=== PATIENT | female | born 1965 | race Caucasian/White ===

== ENCOUNTER 2016-12-18 19:11 | Inpatient (IN) | payer OTHER ==
[2016-12-18 19:27] VITALS: BMI 30.3
--- NOTE | 2016-12-18 21:35 | HP ---
CIWA Score - CIWA Score Nausea/Vomitin Muscle Tremors: 5 Anxiety: 4-Mod. Anxious/Guarded Agitation: 4-Moderately Restless Paroxysmal Sweats: 1-Minimal Palms Moist Orientation: 1-Uncertain about Date Tacttile Disturbances: 0-None Auditory Disturbances: 0-None Visual Disturbances: 0-None Headache: 0-None Present CIWA-Ar Total Score: 17 Admission ROS BHS - HPI Chief Complaint: withdrawal sx Allergies/Adverse Reactions: Allergies Allergy/AdvReac Type Severity Reaction Status Date / Time prednisone Allergy Verified 12/18/16 21:36 History of Present Illness: 51 years old female with long history of alcohol nicotine dependence, has asthma swelling of both legs hypertension is admitted to detox Exam Limitations: No Limitations - Ebola screening Have you traveled outside of the country in the last 21 days: No Have you had contact with anyone from an Ebola affected area: No Have you been sick,other than usual withdrawal symptoms: No Do you have a fever: No - Review of Systems Constitutional: Chills, Changes in sleep, Weight Stable EENT: reports: Dental Problems (denture upper and lower at home) Respiratory: reports: SOB at Rest, Productive cough Cardiac: reports: No Symptoms Reported GI: reports: Diarrhea, Nausea, Poor Fluid Intake, Vomiting, Abdominal cramping : reports: No Symptoms Reported Musculoskeletal: reports: No Symptoms Reported Integumentary: reports: No Symptoms Reported Neuro: reports: Tremors Endocrine: reports: No Symptoms Reported Hematology: reports: No Symptoms Reported Psychiatric: reports: Judgement Intact, Mood/Affect Appropiate Other Systems: Reviewed and Negative Patient History - Patient Medical History Hx Anemia: No Hx Asthma: Yes Hx Chronic Obstructive Pulmonary Disease (COPD): Yes Hx Cancer: No Hx Cardiac Disorders: No Hx Congestive Heart Failure: No Hx Hypertension: Yes Hx Hypercholesterolemia: No Hx Pacemaker: No HX Cerebrovascular Accident: No Hx Seizures: No Hx Dementia: No Hx Diabetes: No Hx Gastrointestinal Disorders: No Hx Liver Disease: No Hx Genitourinary Disorders: No Hx Sexually Transmitted Disorders: No Hx Renal Disease (ESRD): No Hx Thyroid Disease: No Hx Human Immunodeficiency Virus (HIV): No Hx Hepatitis C: Yes Hx Depression: No Hx Suicide Attempt: No Hx Bipolar Disorder: No Hx Schizophrenia: No - Patient Surgical History Past Surgical History: No - PPD History Previous Implant?: Yes Documented Results: Negative w/o proof Implanted On Prior [facility] Admission?: No PPD to be Administered?: Yes - Reproductive History Patient is a Female of Child Bearing Age (11 -55 yrs old): Yes Last Menstrual Period: 12/19/11 Patient : No - Smoking Cessation Smoking history: Current every day smoker Have you smoked in the past 12 months: Yes Aproximately how many cigarettes per day: 5 Cigars Per Day: 0 Hx Chewing Tobacco Use: No Initiated information on smoking cessation: Yes 'Breaking Loose' booklet given: 12/18/16 - Substance & Tx. History Hx Alcohol Use: Yes Hx Substance Use: No Substance Use Type: Alcohol, Heroin Hx Substance Use Treatment: Yes - Substances Abused Alcohol Route: Oral Frequency: Daily Amount used: 2 pints volka Age of first use: 46 Date of Last Use: 12/18/16 Family Disease History - Family Disease History Family Disease History: Other: Father (no contact), Mother (alcohol) Admission Physical Exam BHS - Vital Signs Vital Signs: Vital Signs - 24 hr 12/18/16 19:13 Temperature 97.1 F L Pulse Rate 78 Respiratory 20 Rate Blood Pressure 121/74 - Physical General Appearance: Yes: Nourished, Appropriately Dressed, Moderate Distress, Alcohol on Breath, Tremorous, Irritable, Sweating, Anxious HEENTM: Yes: Hearing grossly Normal, Normal ENT Inspection, Normocephalic, Normal Voice Respiratory: Yes: Chest Non-Tender, Labored Respiration, No Respiratory Distress , No Accessory Muscle Use, Rhonchi, Wheezing, Expiration Neck: Yes: Supple, Trachea in good position Breast: Yes: Breasts Symetrical Cardiology: Yes: Regular Rhythm, Regular Rate, S1, S2 Abdominal: Yes: Non Tender, Soft Genitourinary: Yes: Within Normal Limits Back: Yes: Normal Inspection Musculoskeletal: Yes: full range of Motion, Gait Steady, Joint swelling (both ankle) Extremities: Yes: Normal Range of Motion, Non-Tender, Tremors, Swelling (ankles) Neurological: Yes: Alert, Motor Strength 5/5, Normal Mood/Affect, Normal Response Integumentary: Yes: Warm, Moist Lymphatic: Yes: Within Normal Limits - Diagnostic (1) Alcohol dependence with uncomplicated withdrawal Current Visit: Yes Status: Acute (2) Asthma Current Visit: Yes Status: Acute Qualifiers: Asthma severity: moderate persistent Asthma complication type: with status asthmaticus Qualified Code(s): J45.42 - Moderate persistent asthma with status asthmaticus (3) Nicotine dependence Current Visit: Yes Status: Acute Qualifiers: Nicotine product type: cigarettes Substance use status: in withdrawal Qualified Code(s): F17.213 - Nicotine dependence, cigarettes, with withdrawal (4) CHF (congestive heart failure) Current Visit: Yes Status: Acute Qualifiers: Congestive heart failure type: combined Congestive heart failure chronicity: chronic Qualified Code(s): I50.42 - Chronic combined systolic (congestive) and diastolic (congestive) heart failure (5) Hypertension Current Visit: Yes Status: Acute Qualifiers: Hypertension type: essential hypertension Qualified Code(s): I10 - Essential (primary) hypertension (6) Hepatitis C antibody test positive Current Visit: Yes Status: Chronic (7) Methadone maintenance therapy patient Current Visit: Yes Status: Chronic (8) Swelling of lower extremity Current Visit: Yes Status: Chronic Cleared for Admission BHS - Detox or Rehab [facility] Level of Care: Medically Managed Detox Regimen/Protocol: Librium S Breath Alcohol Content Breath Alcohol Content: 0.031 Urine Drug Screen - Results Drug Screen Negative: No Urine Drug Screen Results: MTD-Methadone, TCA-Tricyclic Antidepress
[2016-12-18] MEDS ORDERED: guaiFENesin/D-METHORPHAN HB 10 ML UNIT-DOSE CUPS PO PRN (21:38)
[2016-12-18] MEDS ORDERED: P-EPHED 60MG/TRIPROLIDI 2.5MG TABLET PO PRN (21:38)
[2016-12-18] MEDS ORDERED: MAGNESIUM CITRATE 300 ML BOTTLE PO PRN (21:38)
[2016-12-18] MEDS ORDERED: MENTHOL/PHENOL 1 EACH UD MM PRN (21:38)
[2016-12-18] MEDS ORDERED: MAG HYDROX/AL HYDROX/SIMETH 30 ML UNIT-DOSE CUP PO PRN (21:38)
[2016-12-18] MEDS ORDERED: IBUPROFEN 400 MG TABLET (FP) PO PRN (21:38)
[2016-12-18] MEDS ORDERED: ACETAMINOPHEN 325 MG TABLET (FP) PO PRN (21:38)
[2016-12-18] MEDS ORDERED: chlordiazePOXIDE HCL 25 MG CAPSULE PO ONE (21:38)
[2016-12-18] MEDS ORDERED: MAGNESIUM HYDROX 2400MG/30ML ORAL SUSPENSION 30 ML CUP PO PRN (21:38)
[2016-12-18] MEDS ORDERED: LOPERAMIDE HCL 2 MG CAPSULE PO PRN (21:38)
[2016-12-18] MEDS ORDERED: NICOTINE POLACRILEX 2 MG GUM BC PRN (21:38)
[2016-12-18] MEDS ORDERED: ONDANSETRON *ODT* 4 MG TABLET SL PRN (21:41)
[2016-12-18] MEDS ORDERED: ALBUTEROL SO4 6.7 GM HFA INHALER IH PRN (21:43)
[2016-12-18] MEDS ORDERED: ALBUTEROL SO4 2.5/IPRATROPIUM 0.5 INH SOL 3 ML VIAL.NEB. NEB PRN (21:43)
[2016-12-18] MEDS: THIAMINE HCL 100 MG TABLET (FP) PO SCH (23:45)
[2016-12-19 01:45] LABS: URINE APPEARANCE CLEAR; URINE BILIRUBIN NEGATIVE (NEGATIVE); URINE BLOOD NEGATIVE (NEGATIVE); URINE COLOR AMBER; URINE GLUCOSE (UA) NEGATIVE (NEGATIVE); URINE KETONE NEGATIVE (NEGATIVE); URINE LEUK ESTERASE NEGATIVE (NEGATIVE); URINE NITRITE NEGATIVE (NEGATIVE); URINE PROTEIN NEGATIVE (NEGATIVE); URINE UROBILINOGEN 4.0 E.U/dl E.U./dl (0.2-1.0)
[2016-12-19] MEDS: chlordiazePOXIDE HCL 25 MG CAPSULE PO SCH ×5 (05:55→22:23)
[2016-12-19 09:53] LABS: MCH 35.8 pg (25.7-33.7); MCHC 34.2 g/dl (32.0-36.0); MEAN CELL VOLUME 104.7 fl (80-96); MEAN PLT VOLUME 9.4 fl (7.5-11.1); PLATELET COUNT 58 K/MM3 (134-434); RDW 15.2 % (11.6-15.6)
[2016-12-19] MEDS ORDERED: ALBUTEROL SO4 2.5/IPRATROPIUM 0.5 INH SOL 3 ML VIAL.NEB. NEB ONE (09:55)
[2016-12-19] MEDS ORDERED: METHADONE HCL 10 MG TABLET PO ONE (09:56)
--- NOTE | 2016-12-19 10:01 | PN ---
S CIWA - CIWA Score Nausea/Vomitin-No Nausea/No Vomiting Muscle Tremors: 4-Moderate,w/Arms Extend Anxiety: 3 Agitation: 4-Moderately Restless Paroxysmal Sweats: 3 Orientation: 0-Oriented Tacttile Disturbances: 0-None Auditory Disturbances: 0-None Visual Disturbances: 0-None Headache: 1-Very Mild CIWA-Ar Total Score: 15 BHS Progress Note (SOAP) Subjective: congestion/asthma sweats shakes interrupted sleep agitation body aches Objective: 12/19/16 09:59 Vital Signs Temperature 99.1 F 12/19/16 09:41 Pulse Rate 76 12/19/16 09:41 Respiratory Rate 18 12/19/16 09:41 Blood Pressure 139/81 12/19/16 09:41 O2 Sat by Pulse Oximetry (%) Laboratory Tests 12/19/16 01:13 Urine Color Kimberly Urine Appearance Clear Urine pH 7.0 Ur Specific [place] 1.015 Urine Protein Negative Urine Glucose (UA) Negative Urine Ketones Negative Urine Blood Negative Urine Nitrite Negative Urine Bilirubin Negative Urine Urobilinogen 4.0 e.u/dl H Ur Leukocyte Esterase Negative labs pending awake/alert ambulating no acute distress Assessment: 12/19/16 09:59 withdrawal sx wheeze/rhonchi noted Plan: continue detox increase fluids duoneb now then prn labs pending
[2016-12-19] MEDS ORDERED: METHADONE 40 MG, METHADONE 30 MG PO ONE (10:10)
[2016-12-19 10:16] LABS: ALBUMIN 3.2 g/dl (3.4-5.0); ALK PHOS 153 U/L (45-117); ANION GAP 8 (8-16); BILIRUBIN,TOTAL 2.1 mg/dL (0.2-1.0); CALCIUM 9.3 mg/dL (8.5-10.1); CO2 31 mmol/L (21-32); CREATININE 0.7 mg/dL (0.55-1.02); GLUCOSE,RANDOM 92 mg/dL (74-106); SGOT/AST 89 U/L (15-37); SGPT/ALT 37 U/L (12-78); TOT PROT 7.7 g/dl (6.4-8.2)
[2016-12-19] MEDS: FUROSEMIDE 40 MG TABLET (FP) PO SCH (10:28)
[2016-12-19] MEDS: PRENATAL VITAMINS W/ FOLIC ACID TABLET (FP) PO SCH (10:28)
[2016-12-19] MEDS: NICOTINE 14 MG/24 HOURS TOPICAL PATCH TD SCH (10:29)
[2016-12-19] MEDS: amLODIPine BESYLATE 5 MG TABLET (FP) PO SCH (10:29)
[2016-12-19] MEDS ORDERED: METHADONE HCL 10 MG TABLET ONE (10:32)
[2016-12-19] MEDS ORDERED: METHADONE HCL 40 MG DISPERSABLE TABLET ONE (10:32)
[2016-12-19] MEDS: chlordiazePOXIDE HCL 25 MG CAPSULE PO PRN (14:39)
--- NOTE | 2016-12-19 17:44 | CONSULT ---
[facility] Psychiatric Consult - Data Date of interview: 12/19/16 Admission source: [facility] Identifying data: First admission to [facility] for this 51 y/o female seeking detox treatment on for alcohol and heroin dependence.Patient is single,a mother of three,domiciled,unemployed and supported on Public Assistance. Substance Abuse History: - Smoking Cessation. Smoking history: Current every day smoker. Have you smoked in the past 12 months: Yes. Aproximately how many cigarettes per day: 5. Cigars Per Day: 0. Hx Chewing Tobacco Use: No. Initiated information on smoking cessation: Yes. 'Breaking Loose' booklet given : 12/18/16. - Substance & Tx. History. Hx Alcohol Use: Yes. Hx Substance Use : No. Substance Use Type: Alcohol, Heroin. Hx Substance Use Treatment: Yes. - Substances Abused. Alcohol. Route: Oral. Frequency: Daily. Amount used : 2 pints volka. Age of first use: 46. Date of Last Use: 12/18/16. Confirmed by patient. Medical History: Hypertension,CHF,hepatitis C and bronchial asthma. Psychiatric History: Patient denies. Physical/Sexual Abuse/Trauma History: Patient denies. Mental Status Exam - Mental Status Exam Alert and Oriented to: Time, Place, Person Cognitive Function: Good Patient Appearance: Well Groomed Mood: Hopeful, Euthymic Affect: Appropriate, Normal Range Patient Behavior: Fatigued, Appropriate, Cooperative Speech Pattern: Clear Voice Loudness: Normal Thought Process: Goal Oriented Thought Disorder: Not Present Hallucinations: Denies Suicidal Ideation: Denies Homicidal Ideation: Denies Insight/Judgement: Poor Sleep: Well Appetite: Good Muscle strength/Tone: Normal Gait/Station: Normal Psychiatric Findings - Problem List ([place] 1, 2,3) (1) Alcohol dependence with uncomplicated withdrawal Current Visit: Yes Status: Acute (2) Nicotine dependence Current Visit: Yes Status: Acute Qualifiers: Nicotine product type: cigarettes Substance use status: in withdrawal Qualified Code(s): F17.213 - Nicotine dependence, cigarettes, with withdrawal (3) Methadone maintenance therapy patient Current Visit: Yes Status: Chronic (4) Asthma Current Visit: Yes Status: Chronic Qualifiers: Asthma severity: moderate persistent Asthma complication type: with status asthmaticus Qualified Code(s): J45.42 - Moderate persistent asthma with status asthmaticus (5) CHF (congestive heart failure) Current Visit: Yes Status: Chronic Qualifiers: Congestive heart failure type: combined Congestive heart failure chronicity: chronic Qualified Code(s): I50.42 - Chronic combined systolic (congestive) and diastolic (congestive) heart failure (6) Hypertension Current Visit: Yes Status: Chronic Qualifiers: Hypertension type: essential hypertension Qualified Code(s): I10 - Essential (primary) hypertension (7) Hepatitis C antibody test positive Current Visit: Yes Status: Chronic (8) Swelling of lower extremity Current Visit: Yes Status: Chronic - Initial Treatment Plan Initial Treatment Plan: Psychoeducation.Detoxification.Observation.
[2016-12-19] MEDS: THIAMINE HCL 100 MG TABLET (FP) PO SCH (22:23)
[2016-12-19] MEDS: diphenhydrAMINE HCL 50 MG CAPSULE PO PRN (22:24)
[2016-12-20] MEDS ORDERED: METHADONE HCL 10 MG TABLET ONE (04:09)
[2016-12-20] MEDS ORDERED: METHADONE HCL 40 MG DISPERSABLE TABLET ONE (04:09)
[2016-12-20] MEDS: METHADONE 40 MG, METHADONE 30 MG PO SCH (05:11)
[2016-12-20] MEDS: chlordiazePOXIDE HCL 25 MG CAPSULE PO SCH ×3 (05:11→17:40)
[2016-12-20] MEDS ORDERED: METHADONE HCL 40 MG DISPERSABLE TABLET PO SCH (06:00)
[2016-12-20] MEDS: NICOTINE 14 MG/24 HOURS TOPICAL PATCH TD SCH (10:01)
[2016-12-20] MEDS: PRENATAL VITAMINS W/ FOLIC ACID TABLET (FP) PO SCH (10:01)
[2016-12-20] MEDS: FUROSEMIDE 40 MG TABLET (FP) PO SCH (10:01)
[2016-12-20] MEDS: amLODIPine BESYLATE 5 MG TABLET (FP) PO SCH (10:01)
--- NOTE | 2016-12-20 11:54 | PN ---
S CIWA - CIWA Score Nausea/Vomitin Muscle Tremors: 2 Anxiety: 2 Agitation: 2 Paroxysmal Sweats: 2 Orientation: 0-Oriented Tacttile Disturbances: 1-Very Mild Itch/Numbness Auditory Disturbances: 0-None Visual Disturbances: 0-None Headache: 0-None Present CIWA-Ar Total Score: 11 S Progress Note (SOAP) Subjective: interrupted sleep, sweats ,shakes Objective: 12/20/16 11:52 Vital Signs Temperature 98.8 F 12/20/16 10:10 Pulse Rate 87 12/20/16 10:10 Respiratory Rate 16 12/20/16 10:10 Blood Pressure 107/80 12/20/16 10:10 O2 Sat by Pulse Oximetry (%) Laboratory Tests 12/19/16 12/19/16 12/19/16 01:13 07:00 07:00 WBC 4.0 RBC 3.49 L Hgb 12.5 Hct 36.6 MCV 104.7 H MCHC 34.2 RDW 15.2 Plt Count 58 L MPV 9.4 Sodium 138 Potassium 3.7 Chloride 99 Carbon Dioxide 31 Anion Gap 8 BUN 11 Creatinine 0.7 Creat Clearance w eGFR > 60 Random Glucose 92 Calcium 9.3 Total Bilirubin 2.1 H AST 89 H ALT 37 Alkaline Phosphatase 153 H Total Protein 7.7 Albumin 3.2 L Urine Color Kimberly Urine Appearance Clear Urine pH 7.0 Ur Specific [place] 1.015 Urine Protein Negative Urine Glucose (UA) Negative Urine Ketones Negative Urine Blood Negative Urine Nitrite Negative Urine Bilirubin Negative Urine Urobilinogen 4.0 e.u/dl H Ur Leukocyte Esterase Negative RPR Titer 12/19/16 07:00 WBC RBC Hgb Hct MCV MCHC RDW Plt Count MPV Sodium Potassium Chloride Carbon Dioxide Anion Gap BUN Creatinine Creat Clearance w eGFR Random Glucose Calcium Total Bilirubin AST ALT Alkaline Phosphatase Total Protein Albumin Urine Color Urine Appearance Urine pH Ur Specific [place] Urine Protein Urine Glucose (UA) Urine Ketones Urine Blood Urine Nitrite Urine Bilirubin Urine Urobilinogen Ur Leukocyte Esterase RPR Titer Nonreactive pt aox3 in nad ambulating Assessment: 12/20/16 11:52 withdrawl sx's Plan: cont. detox increase fluids
--- NOTE | 2016-12-20 12:42 | EKG ---
Test Reason : Blood Pressure : / mmHG Vent. Rate : 084 BPM Atrial Rate : 084 BPM P-R Int : 128 ms QRS Dur : 098 ms QT Int : 414 ms P-R-T Axes : 040 049 -05 degrees QTc Int : 489 ms NORMAL SINUS RHYTHM PROLONGED QT ABNORMAL ECG NO PREVIOUS ECGS AVAILABLE Confirmed by TATI PIERCE, ANALIA ([id number]) on 12/20/2016 12:41:55 PM Referred By: Austin Briones Confirmed By:ANALIA DUFFY MD
[2016-12-20] MEDS: chlordiazePOXIDE HCL 25 MG CAPSULE PO PRN (15:34)
[2016-12-20] MEDS: chlordiazePOXIDE 5 MG CAPSULE PO SCH (22:08)
[2016-12-20] MEDS: THIAMINE HCL 100 MG TABLET (FP) PO SCH (22:08)
[2016-12-20] MEDS: diphenhydrAMINE HCL 50 MG CAPSULE PO PRN (22:09)
[2016-12-21] MEDS ORDERED: METHADONE HCL 10 MG TABLET ONE (05:08)
[2016-12-21] MEDS ORDERED: METHADONE HCL 40 MG DISPERSABLE TABLET ONE (05:08)
[2016-12-21] MEDS: METHADONE 40 MG, METHADONE 30 MG PO SCH (06:04)
[2016-12-21] MEDS: chlordiazePOXIDE 5 MG CAPSULE PO SCH ×3 (06:04→17:16)
[2016-12-21] MEDS: FUROSEMIDE 40 MG TABLET (FP) PO SCH (10:23)
[2016-12-21] MEDS: PRENATAL VITAMINS W/ FOLIC ACID TABLET (FP) PO SCH (10:23)
[2016-12-21] MEDS: amLODIPine BESYLATE 5 MG TABLET (FP) PO SCH (10:24)
[2016-12-21] MEDS: NICOTINE 14 MG/24 HOURS TOPICAL PATCH TD SCH (10:24)
--- NOTE | 2016-12-21 12:32 | PN ---
S Progress Note (SOAP) Subjective: Sweating, Tremors, Body Aches. Objective: Pt. A & O X 2 (Disoriented about Day / Date). Pt. denies any unusual bruising or bleeding. 12/21/16 12:29 Vital Signs Temperature 98.6 F 12/21/16 09:39 Pulse Rate 87 12/21/16 09:39 Respiratory Rate 18 12/21/16 09:39 Blood Pressure 117/69 12/21/16 09:39 O2 Sat by Pulse Oximetry (%) Laboratory Last Values WBC 4.0 K/mm3 (4.0-10.0) 12/19/16 07:00 RBC 3.49 M/mm3 (3.60-5.2) L 12/19/16 07:00 Hgb 12.5 GM/dL (10.7-15.3) 12/19/16 07:00 Hct 36.6 % (32.4-45.2) 12/19/16 07:00 MCV 104.7 fl (80-96) H 12/19/16 07:00 MCHC 34.2 g/dl (32.0-36.0) 12/19/16 07:00 RDW 15.2 % (11.6-15.6) 12/19/16 07:00 Plt Count 58 K/MM3 (134-434) L 12/19/16 07:00 MPV 9.4 fl (7.5-11.1) 12/19/16 07:00 Sodium 138 mmol/L (136-145) 12/19/16 07:00 Potassium 3.7 mmol/L (3.5-5.1) 12/19/16 07:00 Chloride 99 mmol/L (98-107) 12/19/16 07:00 Carbon Dioxide 31 mmol/L (21-32) 12/19/16 07:00 Anion Gap 8 (8-16) 12/19/16 07:00 BUN 11 mg/dL (7-18) 12/19/16 07:00 Creatinine 0.7 mg/dL (0.55-1.02) 12/19/16 07:00 Creat Clearance w eGFR > 60 (>60) 12/19/16 07:00 Random Glucose 92 mg/dL (74-106) 12/19/16 07:00 Calcium 9.3 mg/dL (8.5-10.1) 12/19/16 07:00 Total Bilirubin 2.1 mg/dL (0.2-1.0) H 12/19/16 07:00 AST 89 U/L (15-37) H 12/19/16 07:00 ALT 37 U/L (12-78) 12/19/16 07:00 Alkaline Phosphatase 153 U/L (45-117) H 12/19/16 07:00 Total Protein 7.7 g/dl (6.4-8.2) 12/19/16 07:00 Albumin 3.2 g/dl (3.4-5.0) L 12/19/16 07:00 Urine Color Kimberly 12/19/16 01:13 Urine Appearance Clear 12/19/16 01:13 Urine pH 7.0 (5.0-8.0) 12/19/16 01:13 Ur Specific [place] 1.015 (1.001-1.035) 12/19/16 01:13 Urine Protein Negative (NEGATIVE) 12/19/16 01:13 Urine Glucose (UA) Negative (NEGATIVE) 12/19/16 01:13 Urine Ketones Negative (NEGATIVE) 12/19/16 01:13 Urine Blood Negative (NEGATIVE) 12/19/16 01:13 Urine Nitrite Negative (NEGATIVE) 12/19/16 01:13 Urine Bilirubin Negative (NEGATIVE) 12/19/16 01:13 Urine Urobilinogen 4.0 e.u/dl E.U./dl (0.2-1.0) H 12/19/16 01:13 Ur Leukocyte Esterase Negative (NEGATIVE) 12/19/16 01:13 RPR Titer Nonreactive (NONREACTIVE) 12/19/16 07:00 LABS NOTED. 12/21/16 12:30 12/21/16 13:41 Assessment: 12/21/16 12:31 WITHDRAWAL SYMPTOMS. Plan: CONTINUE DETOX. ADVISED PT. TO FOLLOW-UP WITH VET ASSISTANT AFTER DISCHARGE FROM DETOX FOR GENERAL MEDICAL ASSESSMENT AND FOR LOW PLATELET LEVEL.
[2016-12-21] MEDS: THIAMINE HCL 100 MG TABLET (FP) PO SCH (22:37)
[2016-12-21] MEDS: chlordiazePOXIDE HCL 10 MG CAPSULE PO SCH (22:37)
[2016-12-21] MEDS: diphenhydrAMINE HCL 50 MG CAPSULE PO PRN (22:38)
[2016-12-22] MEDS ORDERED: METHADONE HCL 10 MG TABLET ONE (04:49)
[2016-12-22] MEDS ORDERED: METHADONE HCL 40 MG DISPERSABLE TABLET ONE (04:50)
[2016-12-22] MEDS: METHADONE 40 MG, METHADONE 30 MG PO SCH (06:02)
[2016-12-22] MEDS: chlordiazePOXIDE HCL 10 MG CAPSULE PO SCH (06:02)
[2016-12-22 06:39] VITALS: BP 111/72; PULSE 88; TEMP 98.1
--- NOTE | 2016-12-22 08:58 | DS ---
[facility] Detox Discharge Summary Admission Date: 12/18/16 Discharge Date: 12/22/16 - History Present History: Alcohol Dependence, Opioid Dependence Pertinent Past History: see below - Physical Exam Results Vital Signs: Vital Signs Temperature 98.1 F 12/22/16 06:00 Pulse Rate 88 12/22/16 06:00 Respiratory Rate 18 12/22/16 06:00 Blood Pressure 111/72 12/22/16 06:00 O2 Sat by Pulse Oximetry (%) Pertinent Admission Physical Exam Findings: admitted in acute withdrawal medically stable on dc detox completed dc today - Treatment Hospital Course: Detox Protocol Followed, Detoxed Safely, Responded well, Discharged Condition Good, Rehab Referral Accepted - Medication Discharge Medications: Ambulatory Orders Amlodipine Besylate [Norvasc -] 5 mg PO DAILY 12/18/16 Furosemide [Lasix -] 40 mg PO DAILY 12/18/16 - Diagnosis (1) Alcohol dependence with uncomplicated withdrawal Current Visit: Yes Status: Acute (2) Nicotine dependence Current Visit: Yes Status: Acute Qualifiers: Nicotine product type: cigarettes Substance use status: in withdrawal Qualified Code(s): F17.213 - Nicotine dependence, cigarettes, with withdrawal (3) Asthma Current Visit: Yes Status: Chronic Qualifiers: Asthma severity: moderate persistent Asthma complication type: with status asthmaticus Qualified Code(s): J45.42 - Moderate persistent asthma with status asthmaticus (4) CHF (congestive heart failure) Current Visit: Yes Status: Chronic Qualifiers: Congestive heart failure type: combined Congestive heart failure chronicity: chronic Qualified Code(s): I50.42 - Chronic combined systolic (congestive) and diastolic (congestive) heart failure (5) Hepatitis C antibody test positive Current Visit: Yes Status: Chronic (6) Hypertension Current Visit: Yes Status: Chronic Qualifiers: Hypertension type: essential hypertension Qualified Code(s): I10 - Essential (primary) hypertension (7) Methadone maintenance therapy patient Current Visit: Yes Status: Chronic - AMA Did Patient Leave Against Medical Advice: No
[2016-12-22] MEDS: PRENATAL VITAMINS W/ FOLIC ACID TABLET (FP) PO SCH (09:25)
[2016-12-22] MEDS: FUROSEMIDE 40 MG TABLET (FP) PO SCH (09:25)
[2016-12-22] MEDS: amLODIPine BESYLATE 5 MG TABLET (FP) PO SCH (09:26)
== END 2016-12-22 09:56 | disposition home or self-care (01) | DRG 773 ==
LOC: YASAS 19:11 → Y6N 22:27
PROVIDERS: ADMIT Internal Medicine Addiction Medicine; ATTEND Internal Medicine Addiction Medicine
PROC: HZ2ZZZZ Detoxification Services for Substance Abuse Treatment (ICD-10-PCS; principal; 2016-12-22)
DX: F11.20 Opioid dependence, uncomplicated (principal); F10.230 Alcohol dependence with withdrawal, uncomplicated; I50.42 Chronic combined systolic (congestive) and diastolic (congestive) heart failure; I10 Essential (primary) hypertension; J45.42 Moderate persistent asthma with status asthmaticus; B18.2 Chronic viral hepatitis C; R60.0 Localized edema
CPT/HCPCS: 36415; 71020-TC; 80053; 81003; 85027; 86593; 93005; 93010; 94640

== ENCOUNTER 2017-02-07 16:22 | Inpatient (IN) | payer OTHER ==
[2017-02-07 18:07] VITALS: BMI 31.4
--- NOTE | 2017-02-07 20:22 | HP ---
CIWA Score - CIWA Score Nausea/Vomitin-Mild Nausea/No Vomiting Muscle Tremors: 4-Moderate,w/Arms Extend Anxiety: 4-Mod. Anxious/Guarded Agitation: 4-Moderately Restless Paroxysmal Sweats: 3 Orientation: 0-Oriented Tacttile Disturbances: 0-None Auditory Disturbances: 0-None Visual Disturbances: 0-None Headache: 0-None Present CIWA-Ar Total Score: 16 Admission ROS S - HPI Chief Complaint: WITHDRAWAL SYMPTOMS Allergies/Adverse Reactions: Allergies Allergy/AdvReac Type Severity Reaction Status Date / Time prednisone Allergy Intermediate Swelling Verified 02/07/17 18:27 History of Present Illness: 52 Y.O. WOMAN WITH AN EXTENSIVE HISTORY OF ALCOHOL DEPENDENCE IS SEEKING DETOX. SHE WAS HERE FOR DETOX ON 12/2016. SHE STATES SHE DOES NOT HAVE A SIGNIFICANT PERIOD OF SOBRIETY. SHE IS CURRENTLY ENROLLED IN A MMTP. THE PATIENT HAS CELLULITIS ON HER B/L LE AND IS TAKING ANTIBIOTICS. Exam Limitations: No Limitations - Ebola screening Have you traveled outside of the country in the last 21 days: No Have you had contact with anyone from an Ebola affected area: No Have you been sick,other than usual withdrawal symptoms: No Do you have a fever: No - Review of Systems Constitutional: Night Sweats EENT: reports: No Symptoms Reported Respiratory: reports: Productive cough Cardiac: reports: No Symptoms Reported GI: reports: Nausea, Abdominal cramping : reports: No Symptoms Reported Musculoskeletal: reports: No Symptoms Reported Integumentary: reports: Erythema Neuro: reports: Tremors Endocrine: reports: No Symptoms Reported Hematology: reports: No Symptoms Reported Psychiatric: reports: Orientated x3 Other Systems: Reviewed and Negative Patient History - Patient Medical History Hx Anemia: No Hx Asthma: Yes (Pt is on Albuterol IH) Hx Chronic Obstructive Pulmonary Disease (COPD): No Hx Cancer: No Hx Cardiac Disorders: Yes (CHF) Hx Congestive Heart Failure: No Hx Hypertension: Yes (BP: 123/74) Hx Hypercholesterolemia: No Hx Pacemaker: No HX Cerebrovascular Accident: No Hx Seizures: No Hx Dementia: No Hx Diabetes: No Hx Gastrointestinal Disorders: No Hx Liver Disease: No Hx Genitourinary Disorders: No Hx Sexually Transmitted Disorders: No Hx Renal Disease (ESRD): No Hx Thyroid Disease: No Hx Human Immunodeficiency Virus (HIV): No Hx Hepatitis C: Yes Hx Depression: No Hx Suicide Attempt: No Hx Bipolar Disorder: No Hx Schizophrenia: No - Patient Surgical History Past Surgical History: No Hx Neurologic Surgery: No Hx Cataract Extraction: No Hx Cardiac Surgery: No Hx Lung Surgery: No Hx Breast Surgery: No Hx Breast Biopsy: No Hx Abdominal Surgery: No Hx Appendectomy: No Hx Cholecystectomy: No Hx Genitourinary Surgery: No Hx Section: No Hx Orthopedic Surgery: No Anesthesia Reaction: No - PPD History Previous Implant?: Yes Documented Results: Negative w/proof Implanted On Prior [facility] Admission?: Yes Date: 12/21/16 Results: 0 PPD to be Administered?: No - Reproductive History Patient is a Female of Child Bearing Age (11 -55 yrs old): Yes Last Menstrual Period: 12/19/11 Patient : No - Smoking Cessation Smoking history: Current every day smoker Have you smoked in the past 12 months: Yes Aproximately how many cigarettes per day: 5 Cigars Per Day: 0 Hx Chewing Tobacco Use: No Initiated information on smoking cessation: Yes 'Breaking Loose' booklet given: 02/07/17 - Substance & Tx. History Hx Alcohol Use: Yes Hx Substance Use: Yes Substance Use Type: Alcohol, Opiates Hx Substance Use Treatment: Yes (DETOX ) - Substances Abused Alcohol Route: Oral Frequency: Daily Amount used: Vodka 1 pint, Beer 3 cans Age of first use: 51 Date of Last Use: 02/06/17 Family Disease History - Family Disease History Family Disease History: Other: Father (no contact), Mother (alcohol) Admission Physical Exam BHS - Vital Signs Vital Signs: Vital Signs - 24 hr 02/07/17 17:57 Temperature 99.0 F Pulse Rate 85 Respiratory 18 Rate Blood Pressure 123/74 - Physical General Appearance: Yes: Disheveled, Tremorous HEENTM: Yes: Normocephalic, Normal Voice, JAMISON Respiratory: Yes: Wheezing, Expiration, Inspiration Neck: Yes: No masses,lesions,Nodules Breast: Yes: Breast Exam Deferred Cardiology: Yes: Regular Rhythm, Regular Rate, S1, S2 Abdominal: Yes: Non Tender Genitourinary: Yes: Within Normal Limits Back: Yes: Normal Inspection Musculoskeletal: Yes: Within Normal Limits Extremities: Yes: Tremors, Pedal Edema Neurological: Yes: Alert, Normal Mood/Affect, Normal Response Integumentary: Yes: Warm, Erythema, Other (Erythema, edema, and warmth to bilateral lower extremities.) Lymphatic: Yes: Within Normal Limits - Diagnostic (1) Alcohol dependence with uncomplicated withdrawal Current Visit: Yes Status: Chronic (2) Nicotine dependence Current Visit: Yes Status: Chronic Qualifiers: Nicotine product type: cigarettes Substance use status: in withdrawal Qualified Code(s): F17.213 - Nicotine dependence, cigarettes, with withdrawal (3) Asthma Current Visit: Yes Status: Chronic Qualifiers: Asthma severity: moderate persistent Asthma complication type: with status asthmaticus Qualified Code(s): J45.42 - Moderate persistent asthma with status asthmaticus (4) Hypertension Current Visit: Yes Status: Chronic Qualifiers: Hypertension type: essential hypertension Qualified Code(s): I10 - Essential (primary) hypertension (5) Opioid dependence on agonist therapy Current Visit: Yes Status: Chronic (6) Cellulitis and abscess of leg Current Visit: Yes Status: Acute Cleared for Admission S - Detox or Rehab [facility] Level of Care: Medically Managed Detox Regimen/Protocol: Librium [facility] Breath Alcohol Content Breath Alcohol Content: 0 Urine Pregancy Test - Result Urine Test Results: Negative- NO Line Present Urine Drug Screen - Results Drug Screen Negative: No Urine Drug Screen Results: BZO-Benzodiazepines, MTD-Methadone
[2017-02-07] MEDS ORDERED: LOPERAMIDE HCL 2 MG CAPSULE PO PRN (20:47)
[2017-02-07] MEDS ORDERED: MAGNESIUM CITRATE 300 ML BOTTLE PO PRN (20:47)
[2017-02-07] MEDS ORDERED: MAGNESIUM HYDROX 2400MG/30ML ORAL SUSPENSION 30 ML CUP PO PRN (20:47)
[2017-02-07] MEDS ORDERED: IBUPROFEN 400 MG TABLET (FP) PO PRN (20:47)
[2017-02-07] MEDS ORDERED: MAG HYDROX/AL HYDROX/SIMETH 30 ML UNIT-DOSE CUP PO PRN (20:47)
[2017-02-07] MEDS ORDERED: ACETAMINOPHEN 325 MG TABLET (FP) PO PRN (20:47)
[2017-02-07] MEDS ORDERED: chlordiazePOXIDE HCL 25 MG CAPSULE PO PRN (20:47)
[2017-02-07] MEDS ORDERED: chlordiazePOXIDE HCL 25 MG CAPSULE PO ONE (20:47)
[2017-02-07] MEDS ORDERED: P-EPHED 60MG/TRIPROLIDI 2.5MG TABLET PO PRN (20:47)
[2017-02-07] MEDS ORDERED: MENTHOL/PHENOL 1 EACH UD MM PRN (20:47)
[2017-02-07] MEDS ORDERED: hydrOXYzine PAMOATE 50 MG CAPSULE (FP) PO PRN (20:47)
[2017-02-07] MEDS ORDERED: guaiFENesin/D-METHORPHAN HB 10 ML UNIT-DOSE CUPS PO PRN (20:47)
[2017-02-07] MEDS: SULFAMETHOXAZOLE/TRIMETHOPRIM 800MG/160MG D.S. TABLET PO SCH (21:18)
[2017-02-07] MEDS: THIAMINE HCL 100 MG TABLET (FP) PO SCH (21:18)
[2017-02-07] MEDS: chlordiazePOXIDE HCL 25 MG CAPSULE PO SCH (23:00)
[2017-02-07 23:08] LABS: URINE APPEARANCE CLEAR; URINE BILIRUBIN NEGATIVE (NEGATIVE); URINE BLOOD NEGATIVE (NEGATIVE); URINE COLOR YELLOW; URINE GLUCOSE (UA) NEGATIVE (NEGATIVE); URINE KETONE NEGATIVE (NEGATIVE); URINE LEUK ESTERASE NEGATIVE (NEGATIVE); URINE NITRITE NEGATIVE (NEGATIVE); URINE PROTEIN NEGATIVE (NEGATIVE); URINE UROBILINOGEN 4.0 E.U/dl E.U./dl (0.2-1.0)
[2017-02-08] MEDS: chlordiazePOXIDE HCL 25 MG CAPSULE PO SCH ×4 (05:35→22:30)
[2017-02-08] MEDS ORDERED: ALBUTEROL SO4 0.083% IH SOL 2.5 MG/3 ML VIAL.NEB. NEB PRN (06:28)
[2017-02-08] MEDS: AMOX TR/POT CLAV 875MG/125MG TABLETS (FP) PO SCH ×2 (07:57→17:41)
[2017-02-08] MEDS ORDERED: METHADONE HCL 10 MG TABLET PO ONE (09:38)
[2017-02-08] MEDS ORDERED: METHADONE 40 MG, METHADONE 30 MG PO ONE (09:55)
[2017-02-08 10:03] LABS: MCH 35.1 pg (25.7-33.7); MCHC 33.5 g/dl (32.0-36.0); MEAN CELL VOLUME 104.5 fl (80-96); MEAN PLT VOLUME 8.7 fl (7.5-11.1); PLATELET COUNT 54 K/MM3 (134-434); RDW 15.4 % (11.6-15.6); WHITE BLOOD COUNT 4.1 K/mm3 (4.0-10.0)
[2017-02-08] MEDS: amLODIPine BESYLATE 5 MG TABLET (FP) PO SCH (10:41)
[2017-02-08] MEDS: SULFAMETHOXAZOLE/TRIMETHOPRIM 800MG/160MG D.S. TABLET PO SCH ×2 (10:41→22:30)
[2017-02-08] MEDS: HYDROCHLOROTHIAZIDE 25 MG TABLET (FP) PO SCH (10:41)
[2017-02-08] MEDS: FUROSEMIDE 40 MG TABLET (FP) PO SCH (10:41)
[2017-02-08] MEDS: PRENATAL VITAMINS W/ FOLIC ACID TABLET (FP) PO SCH (10:41)
[2017-02-08] MEDS ORDERED: METHADONE HCL 40 MG DISPERSABLE TABLET ONE (10:42)
[2017-02-08] MEDS ORDERED: METHADONE HCL 10 MG TABLET ONE (10:43)
[2017-02-08] MEDS: NICOTINE 14 MG/24 HOURS TOPICAL PATCH TD SCH (10:46)
[2017-02-08 11:19] LABS: ALK PHOS 141 U/L (45-117); ANION GAP 8 (8-16); BILIRUBIN,TOTAL 2.6 mg/dL (0.2-1.0); CALCIUM 9.1 mg/dL (8.5-10.1); CO2 30 mmol/L (21-32); CREATININE 0.8 mg/dL (0.55-1.02); GLUCOSE,RANDOM 94 mg/dL (74-106); SGOT/AST 68 U/L (15-37); SGPT/ALT 23 U/L (12-78); TOT PROT 7.5 g/dl (6.4-8.2)
[2017-02-08] MEDS ORDERED: POTASSIUM CHLORIDE TABS 20 MEQ TABLET.ER (FP) PO ONE (11:42)
--- NOTE | 2017-02-08 11:49 | PN ---
S CIWA - CIWA Score Nausea/Vomitin Muscle Tremors: 2 Anxiety: 3 Agitation: 2 Paroxysmal Sweats: 3 Orientation: 0-Oriented Tacttile Disturbances: 2-Mild Itch/Numbness/Burn Auditory Disturbances: 0-None Visual Disturbances: 0-None Headache: 0-None Present CIWA-Ar Total Score: 14 S Progress Note (SOAP) Subjective: interrupted sleep, sweats, decreased appetite Objective: 02/08/17 11:46 Vital Signs Temperature 99.5 F 02/08/17 09:43 Pulse Rate 79 02/08/17 09:43 Respiratory Rate 18 02/08/17 09:43 Blood Pressure 113/65 02/08/17 09:43 O2 Sat by Pulse Oximetry (%) Laboratory Tests 02/07/17 02/08/17 02/08/17 22:21 07:00 07:00 WBC 4.1 RBC 3.38 L Hgb 11.8 Hct 35.3 MCV 104.5 H MCHC 33.5 RDW 15.4 Plt Count 54 L MPV 8.7 Sodium 138 Potassium 3.1 L Chloride 100 Carbon Dioxide 30 Anion Gap 8 BUN 9 Creatinine 0.8 Creat Clearance w eGFR > 60 Random Glucose 94 Calcium 9.1 Total Bilirubin 2.6 H D AST 68 H D ALT 23 D Alkaline Phosphatase 141 H Total Protein 7.5 Albumin 3.0 L Urine Color Yellow Urine Appearance Clear Urine pH 9.0 H D Ur Specific [place] 1.011 Urine Protein Negative Urine Glucose (UA) Negative Urine Ketones Negative Urine Blood Negative Urine Nitrite Negative Urine Bilirubin Negative Urine Urobilinogen 4.0 e.u/dl H Ur Leukocyte Esterase Negative pt aox3 in nad lying in bed Assessment: 02/08/17 11:47 withdrawal sx;s hypokalemia Plan: cont. detox increase fluids kdur 20meg/d x 3 d cont present tx and meds
[2017-02-08] MEDS: FOLIC ACID 1 MG TABLET (FP) PO SCH (12:21)
--- NOTE | 2017-02-08 17:16 | EKG ---
Test Reason : Blood Pressure : / mmHG Vent. Rate : 087 BPM Atrial Rate : 087 BPM P-R Int : 130 ms QRS Dur : 092 ms QT Int : 406 ms P-R-T Axes : 071 050 033 degrees QTc Int : 488 ms POOR DATA QUALITY, INTERPRETATION MAY BE ADVERSELY AFFECTED NORMAL SINUS RHYTHM POSSIBLE LEFT ATRIAL ENLARGEMENT SEPTAL INFARCT , AGE UNDETERMINED ABNORMAL ECG WHEN COMPARED WITH ECG OF 19-DEC-2016 01:11, SEPTAL INFARCT IS NOW PRESENT Confirmed by LANCE CAPONE MD ([id number]) on 02/08/2017 5:16:48 PM Referred By: Confirmed By:LANCE CAPONE MD
--- NOTE | 2017-02-08 17:17 | EKG ---
Test Reason : Blood Pressure : / mmHG Vent. Rate : 072 BPM Atrial Rate : 072 BPM P-R Int : 130 ms QRS Dur : 102 ms QT Int : 446 ms P-R-T Axes : 047 039 018 degrees QTc Int : 488 ms NORMAL SINUS RHYTHM NONSPECIFIC T WAVE ABNORMALITY PROLONGED QT ABNORMAL ECG WHEN COMPARED WITH ECG OF 07-FEB-2017 18:42, CRITERIA FOR SEPTAL INFARCT ARE NO LONGER PRESENT NONSPECIFIC T WAVE ABNORMALITY, WORSE IN INFERIOR LEADS NONSPECIFIC T WAVE ABNORMALITY NOW EVIDENT IN LATERAL LEADS Confirmed by LANCE CAPONE MD ([id number]) on 02/08/2017 5:17:17 PM Referred By: Confirmed By:LANCE CAPONE MD
[2017-02-08] MEDS: diphenhydrAMINE HCL 50 MG CAPSULE PO PRN (22:30)
[2017-02-08] MEDS: THIAMINE HCL 100 MG TABLET (FP) PO SCH (22:30)
[2017-02-09] MEDS ORDERED: METHADONE HCL 40 MG DISPERSABLE TABLET ONE (04:31)
[2017-02-09] MEDS ORDERED: METHADONE HCL 10 MG TABLET ONE (04:32)
[2017-02-09] MEDS: METHADONE 40 MG, METHADONE 30 MG PO SCH (05:49)
[2017-02-09] MEDS: chlordiazePOXIDE HCL 25 MG CAPSULE PO SCH ×3 (05:50→17:42)
[2017-02-09] MEDS ORDERED: METHADONE HCL 40 MG DISPERSABLE TABLET PO SCH (06:00)
[2017-02-09] MEDS: AMOX TR/POT CLAV 875MG/125MG TABLETS (FP) PO SCH ×2 (07:55→17:42)
[2017-02-09] MEDS: PRENATAL VITAMINS W/ FOLIC ACID TABLET (FP) PO SCH (10:34)
[2017-02-09] MEDS: HYDROCHLOROTHIAZIDE 25 MG TABLET (FP) PO SCH (10:35)
[2017-02-09] MEDS: POTASSIUM CHLORIDE TABS 20 MEQ TABLET.ER (FP) PO SCH (10:35)
[2017-02-09] MEDS: FUROSEMIDE 40 MG TABLET (FP) PO SCH (10:35)
[2017-02-09] MEDS: FOLIC ACID 1 MG TABLET (FP) PO SCH (10:35)
[2017-02-09] MEDS: SULFAMETHOXAZOLE/TRIMETHOPRIM 800MG/160MG D.S. TABLET PO SCH ×2 (10:35→22:22)
[2017-02-09] MEDS: amLODIPine BESYLATE 5 MG TABLET (FP) PO SCH (10:35)
[2017-02-09] MEDS: NICOTINE 14 MG/24 HOURS TOPICAL PATCH TD SCH (10:37)
--- NOTE | 2017-02-09 14:27 | PN ---
[facility] CIWA - CIWA Score Nausea/Vomitin Muscle Tremors: 3 Anxiety: 3 Agitation: 3 Paroxysmal Sweats: 1-Minimal Palms Moist Orientation: 0-Oriented Tacttile Disturbances: 1-Very Mild Itch/Numbness Auditory Disturbances: 1-Very Mild Visual Disturbances: 1-Very Mild Sensitivity Headache: 2-Mild CIWA-Ar Total Score: 18 [facility] Progress Note (SOAP) Subjective: ALERT,IRRITABLE,ANXIOUS,INTERRUPTED SLEEP,PAIN IN THE CACK Objective: 02/09/17 14:26 Vital Signs Temperature 98.4 F 02/09/17 14:13 Pulse Rate 76 02/09/17 14:13 Respiratory Rate 18 02/09/17 14:13 Blood Pressure 114/72 02/09/17 14:13 O2 Sat by Pulse Oximetry (%) 02/09/17 14:27 Assessment: 02/09/17 14:26 WITHDRAWAL SYMPTOM 02/09/17 14:27 Plan: CONTINUE DETOX,REPEAT CMP IN AM
[2017-02-09] MEDS ORDERED: ALBUTEROL SO4 6.7 GM HFA INHALER IH ONE (15:56)
[2017-02-09] MEDS ORDERED: ALBUTEROL SO4 6.7 GM HFA INHALER IH PRN (17:55)
[2017-02-09] MEDS: diphenhydrAMINE HCL 50 MG CAPSULE PO PRN (22:21)
[2017-02-09] MEDS: chlordiazePOXIDE 5 MG CAPSULE PO SCH (22:22)
[2017-02-09] MEDS: THIAMINE HCL 100 MG TABLET (FP) PO SCH (22:41)
[2017-02-10] MEDS ORDERED: METHADONE HCL 10 MG TABLET ONE (04:44)
[2017-02-10] MEDS ORDERED: METHADONE HCL 40 MG DISPERSABLE TABLET ONE (04:44)
[2017-02-10] MEDS: chlordiazePOXIDE 5 MG CAPSULE PO SCH ×3 (05:32→17:04)
[2017-02-10] MEDS: METHADONE 40 MG, METHADONE 30 MG PO SCH (05:33)
[2017-02-10] MEDS: AMOX TR/POT CLAV 875MG/125MG TABLETS (FP) PO SCH ×2 (07:15→17:03)
[2017-02-10] MEDS: FOLIC ACID 1 MG TABLET (FP) PO SCH (10:45)
[2017-02-10] MEDS: SULFAMETHOXAZOLE/TRIMETHOPRIM 800MG/160MG D.S. TABLET PO SCH ×2 (10:45→22:28)
[2017-02-10] MEDS: HYDROCHLOROTHIAZIDE 25 MG TABLET (FP) PO SCH (10:45)
[2017-02-10] MEDS: POTASSIUM CHLORIDE TABS 20 MEQ TABLET.ER (FP) PO SCH (10:46)
[2017-02-10] MEDS: FUROSEMIDE 40 MG TABLET (FP) PO SCH (10:46)
[2017-02-10] MEDS: amLODIPine BESYLATE 5 MG TABLET (FP) PO SCH (10:47)
[2017-02-10] MEDS: NICOTINE 14 MG/24 HOURS TOPICAL PATCH TD SCH (10:47)
[2017-02-10] MEDS: PRENATAL VITAMINS W/ FOLIC ACID TABLET (FP) PO SCH (10:47)
[2017-02-10 11:04] LABS: ALBUMIN 3.3 g/dl (3.4-5.0); BILIRUBIN,TOTAL 2.6 mg/dL (0.2-1.0); CALCIUM 8.8 mg/dL (8.5-10.1); CREATININE 1.1 mg/dL (0.55-1.02); TOT PROT 8.4 g/dl (6.4-8.2)
--- NOTE | 2017-02-10 12:55 | PN ---
S Progress Note (SOAP) Subjective: ALERT,IRRITABLE,ANXIOUS,INTERRUPTED SLEEP,PAIN IN THE BODY Objective: 02/10/17 12:53 02/10/17 12:53 Vital Signs Temperature 98.1 F 02/10/17 10:00 Pulse Rate 81 02/10/17 10:00 Respiratory Rate 20 02/10/17 10:00 Blood Pressure 106/70 02/10/17 10:00 O2 Sat by Pulse Oximetry (%) 02/10/17 12:54 Laboratory Last Values WBC 4.1 K/mm3 (4.0-10.0) 02/08/17 07:00 RBC 3.38 M/mm3 (3.60-5.2) L 02/08/17 07:00 Hgb 11.8 GM/dL (10.7-15.3) 02/08/17 07:00 Hct 35.3 % (32.4-45.2) 02/08/17 07:00 MCV 104.5 fl (80-96) H 02/08/17 07:00 MCHC 33.5 g/dl (32.0-36.0) 02/08/17 07:00 RDW 15.4 % (11.6-15.6) 02/08/17 07:00 Plt Count 54 K/MM3 (134-434) L 02/08/17 07:00 MPV 8.7 fl (7.5-11.1) 02/08/17 07:00 Sodium 134 mmol/L (136-145) L 02/10/17 08:00 Potassium 4.0 mmol/L (3.5-5.1) D 02/10/17 08:00 Chloride 95 mmol/L (98-107) L 02/10/17 08:00 Carbon Dioxide 30 mmol/L (21-32) 02/10/17 08:00 Anion Gap 9 (8-16) 02/10/17 08:00 BUN 15 mg/dL (7-18) D 02/10/17 08:00 Creatinine 1.1 mg/dL (0.55-1.02) H D 02/10/17 08:00 Creat Clearance w eGFR 52.58 (>60) 02/10/17 08:00 Random Glucose 87 mg/dL (74-106) 02/10/17 08:00 Calcium 8.8 mg/dL (8.5-10.1) 02/10/17 08:00 Total Bilirubin 2.6 mg/dL (0.2-1.0) H 02/10/17 08:00 AST 65 U/L (15-37) H 02/10/17 08:00 ALT 26 U/L (12-78) 02/10/17 08:00 Alkaline Phosphatase 143 U/L (45-117) H 02/10/17 08:00 Total Protein 8.4 g/dl (6.4-8.2) H 02/10/17 08:00 Albumin 3.3 g/dl (3.4-5.0) L 02/10/17 08:00 Urine Color Yellow 02/07/17 22:21 Urine Appearance Clear 02/07/17 22:21 Urine pH 9.0 (5.0-8.0) H D 02/07/17 22:21 Ur Specific [place] 1.011 (1.001-1.035) 02/07/17 22:21 Urine Protein Negative (NEGATIVE) 02/07/17 22:21 Urine Glucose (UA) Negative (NEGATIVE) 02/07/17 22:21 Urine Ketones Negative (NEGATIVE) 02/07/17 22:21 Urine Blood Negative (NEGATIVE) 02/07/17 22:21 Urine Nitrite Negative (NEGATIVE) 02/07/17 22:21 Urine Bilirubin Negative (NEGATIVE) 02/07/17 22:21 Urine Urobilinogen 4.0 e.u/dl E.U./dl (0.2-1.0) H 02/07/17 22:21 Ur Leukocyte Esterase Negative (NEGATIVE) 02/07/17 22:21 RPR Titer Nonreactive (NONREACTIVE) 02/08/17 07:00 Assessment: 02/10/17 12:54 WITHDRAWAL SYMPTOM Plan: CONTINUE DETOX
[2017-02-10] MEDS: chlordiazePOXIDE HCL 10 MG CAPSULE PO SCH (22:28)
[2017-02-10] MEDS: diphenhydrAMINE HCL 50 MG CAPSULE PO PRN (22:28)
[2017-02-10] MEDS: THIAMINE HCL 100 MG TABLET (FP) PO SCH (22:29)
[2017-02-11] MEDS ORDERED: chlordiazePOXIDE 5 MG CAPSULE ONE (04:54)
[2017-02-11] MEDS ORDERED: METHADONE HCL 40 MG DISPERSABLE TABLET ONE (04:55)
[2017-02-11] MEDS ORDERED: METHADONE HCL 10 MG TABLET ONE (04:55)
[2017-02-11] MEDS: chlordiazePOXIDE HCL 10 MG CAPSULE PO SCH (06:02)
[2017-02-11] MEDS: METHADONE 40 MG, METHADONE 30 MG PO SCH (06:04)
[2017-02-11] MEDS: AMOX TR/POT CLAV 875MG/125MG TABLETS (FP) PO SCH (07:29)
[2017-02-11] MEDS: PRENATAL VITAMINS W/ FOLIC ACID TABLET (FP) PO SCH (09:17)
[2017-02-11] MEDS: FOLIC ACID 1 MG TABLET (FP) PO SCH (09:17)
[2017-02-11] MEDS: SULFAMETHOXAZOLE/TRIMETHOPRIM 800MG/160MG D.S. TABLET PO SCH (09:18)
[2017-02-11] MEDS: amLODIPine BESYLATE 5 MG TABLET (FP) PO SCH (09:18)
[2017-02-11] MEDS: FUROSEMIDE 40 MG TABLET (FP) PO SCH (09:18)
[2017-02-11] MEDS: HYDROCHLOROTHIAZIDE 25 MG TABLET (FP) PO SCH (09:20)
[2017-02-11 11:01] VITALS: BP 106/77; PULSE 87; TEMP 99.5
--- NOTE | 2017-02-11 13:05 | DS ---
[facility] Detox Discharge Summary Admission Date: 02/07/17 Discharge Date: 02/11/17 - History Present History: Alcohol Dependence, MMTP Pertinent Past History: HTN Asthma CHF Hepatitis C - Physical Exam Results Vital Signs: Vital Signs Temperature 99.5 F 02/11/17 10:00 Pulse Rate 87 02/11/17 10:00 Respiratory Rate 18 02/11/17 10:00 Blood Pressure 106/77 02/11/17 10:00 O2 Sat by Pulse Oximetry (%) Pertinent Admission Physical Exam Findings: Withdrawal symptoms Laboratory Tests 02/07/17 02/08/17 02/08/17 22:21 07:00 07:00 WBC 4.1 RBC 3.38 L Hgb 11.8 Hct 35.3 MCV 104.5 H MCHC 33.5 RDW 15.4 Plt Count 54 L MPV 8.7 Sodium 138 Potassium 3.1 L Chloride 100 Carbon Dioxide 30 Anion Gap 8 BUN 9 Creatinine 0.8 Creat Clearance w eGFR > 60 Random Glucose 94 Calcium 9.1 Total Bilirubin 2.6 H D AST 68 H D ALT 23 D Alkaline Phosphatase 141 H Total Protein 7.5 Albumin 3.0 L Urine Color Yellow Urine Appearance Clear Urine pH 9.0 H D Ur Specific [place] 1.011 Urine Protein Negative Urine Glucose (UA) Negative Urine Ketones Negative Urine Blood Negative Urine Nitrite Negative Urine Bilirubin Negative Urine Urobilinogen 4.0 e.u/dl H Ur Leukocyte Esterase Negative RPR Titer 02/08/17 02/10/17 07:00 08:00 WBC RBC Hgb Hct MCV MCHC RDW Plt Count MPV Sodium 134 L Potassium 4.0 D Chloride 95 L Carbon Dioxide 30 Anion Gap 9 BUN 15 D Creatinine 1.1 H D Creat Clearance w eGFR 52.58 Random Glucose 87 Calcium 8.8 Total Bilirubin 2.6 H AST 65 H ALT 26 Alkaline Phosphatase 143 H Total Protein 8.4 H Albumin 3.3 L Urine Color Urine Appearance Urine pH Ur Specific [place] Urine Protein Urine Glucose (UA) Urine Ketones Urine Blood Urine Nitrite Urine Bilirubin Urine Urobilinogen Ur Leukocyte Esterase RPR Titer Nonreactive Labs noted - Treatment Hospital Course: Detox Protocol Followed, Detoxed Safely, Responded well, Discharged Condition Good - Medication Discharge Medications: Ambulatory Orders Albuterol Sulfate Inhaler - [Ventolin Hfa Inhaler -] 1 - 2 inh PO QID 02/07/17 Amlodipine Besylate [Norvasc -] 5 mg PO DAILY 02/07/17 Amoxicillin - [Amoxicillin 875mg Tablet -] 875 mg PO BID 02/07/17 Folic Acid - 1 mg PO DAILY 02/07/17 Furosemide [Lasix -] 40 mg PO DAILY 02/07/17 Hydrochlorothiazide 25 mg PO DAILY 02/07/17 Sulfamethoxazole/Trimethoprim [Bactrim Ds -] 1 tab PO BID 02/07/17 - Diagnosis (1) Alcohol dependence with uncomplicated withdrawal Status: Acute (2) Asthma Status: Chronic Qualifiers: Asthma severity: moderate persistent Asthma complication type: with status asthmaticus Qualified Code(s): J45.42 - Moderate persistent asthma with status asthmaticus (3) CHF (congestive heart failure) Status: Chronic Qualifiers: Congestive heart failure type: combined Congestive heart failure chronicity: chronic Qualified Code(s): I50.42 - Chronic combined systolic (congestive) and diastolic (congestive) heart failure (4) Hypertension Status: Chronic Qualifiers: Hypertension type: essential hypertension Qualified Code(s): I10 - Essential (primary) hypertension (5) Nicotine dependence Status: Chronic Qualifiers: Nicotine product type: cigarettes Substance use status: in withdrawal Qualified Code(s): F17.213 - Nicotine dependence, cigarettes, with withdrawal (6) Opioid dependence on agonist therapy Status: Chronic (7) Hepatitis C antibody test positive Status: Chronic - AMA Did Patient Leave Against Medical Advice: No
== END 2017-02-11 09:33 | disposition home or self-care (01) | DRG 773 ==
LOC: YASAS 16:22 → Y6N 18:55
PROVIDERS: ADMIT Internal Medicine Addiction Medicine; ATTEND Internal Medicine Addiction Medicine
PROC: HZ2ZZZZ Detoxification Services for Substance Abuse Treatment (ICD-10-PCS; principal; 2017-02-11)
DX: F11.20 Opioid dependence, uncomplicated (principal); F10.230 Alcohol dependence with withdrawal, uncomplicated; F17.213 Nicotine dependence, cigarettes, with withdrawal; I50.42 Chronic combined systolic (congestive) and diastolic (congestive) heart failure; I10 Essential (primary) hypertension; J45.42 Moderate persistent asthma with status asthmaticus; B18.2 Chronic viral hepatitis C; L03.116 Cellulitis of left lower limb; L03.115 Cellulitis of right lower limb
CPT/HCPCS: 36415; 80053; 81003; 85027; 86593; 93005; 93010; 94640